=== PATIENT | male | born 1990 | race Caucasian/White ===

== ENCOUNTER 2017-02-02 22:37 | Emergency (ER) | payer OTHER ==
--- NOTE | 2017-02-02 22:42 | PDOC ---
Rapid Medical Evaluation Chief Complaint: Rash Time Seen by Provider: 02/02/17 22:41 Medical Evaluation: 02/02/17 22:41 I have performed a brief in-person evaluation of this patient. The patient presents with a chief complaint of: Skin Sores (Staph Infection) Pertinent physical exam findings: Multiple scattered sores to upper and lower extremities. I have ordered the following:n/a The patient will proceed to the ED for further evaluation.
[2017-02-02 22:43] VITALS: BP 125/89; PULSE 59; TEMP 97.5; BMI 26.6
[2017-02-02] MEDS ORDERED: SULFAMETHOXAZOLE/TRIMETHOPRIM 800MG/160MG D.S. TABLET PO ONE (23:38)
[2017-02-02] MEDS ORDERED: CEPHALEXIN MONOHYDRATE 500 MG CAPSULE (UD) PO ONE (23:38)
--- NOTE | 2017-02-02 23:44 | PDOC ---
History of Present Illness - General Chief Complaint: Rash Stated Complaint: INFECTION Time Seen by Provider: 02/02/17 22:41 History Source: Patient Exam Limitations: No Limitations - History of Present Illness Initial Comments: 02/02/17 23:40 26yo Male patient with no significant past medical history presents to ED c/o multiple skin sores. 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 He discuss this with another wrestler , who instructed him to get tested for Staph infection. Patient googled staph infection and believes the sores he has are quite similar in nature. He denies fever, cough, sore throat, recent traveling, or any other complaints at this time. Timing/Duration: reports: getting worse. denies: just prior to arrival, other, constant, changing over time, gone now, intermittent, week, yesterday, this afternoon, this evening, this morning Severity: Yes: moderate. No: mild, severe Location: reports: extremities, feet, hands. denies: none, face, genitalia, generalized, other, scalp, torso Respiratory Risk Factors: reports: other (See HPI). denies: no cause identified , exposure to illness, exposure to allergen, foods, insect bite, insect sting, medications, pollen, soaps Modifying Factors: improves with: scratching. worse with: antihistamine, calamine lotion, prednisone, topical steriods, other Associated Symptoms: reports: change in skin texture, other (Skin Sores.) Past History - Travel Traveled outside of the country in the last 30 days: No Close contact w/someone who was outside of country & ill: No - Past Medical History Allergies/Adverse Reactions: Allergies Allergy/AdvReac Type Severity Reaction Status Date / Time No Known Allergies Allergy Verified 02/02/17 22:43 Home Medications: Ambulatory Orders Cephalexin [Keflex] 500 mg PO BID #20 capsule 02/03/17 Mupirocin Ointment [Bactroban 2% Ointment -] 1 applic TP BID #1 tube 02/03/17 Sulfamethoxazole/Trimethoprim [Bactrim Ds -] 1 tab PO BID #14 tablet 02/03/17 COPD: No Other medical history: denies - Suicide/Smoking/Psychosocial Hx Smoking History: Never smoked Review of Systems - Review of Systems Able to Perform ROS?: Yes Is the patient limited Nepali proficient: No Constitutional: No: Chills, Fever HEENTM: No: Nose Congestion, Throat Pain, Throat Swelling Respiratory: No: Cough, Shortness of Breath, Wheezing Cardiac (ROS): No: Chest Pain Integumentary: Yes: Lesions All Other Systems: Reviewed and Negative *Physical Exam - Vital Signs Last Vital Signs Temp Pulse Resp BP Pulse Ox 97.5 F L 59 L 18 125/89 99 02/02/17 22:40 02/02/17 22:40 02/02/17 22:40 02/02/17 22:40 02/02/17 22:40 - Physical Exam General Appearance: Yes: Nourished, Appropriately Dressed. No: Apparent Distress, Mild Distress, Moderate Distress, Severe Distress Neck: positive: Trachea midline, Normal Thyroid, Supple. negative: Lymphadenopathy (R), Lymphadenopathy (L) Respiratory/Chest: positive: Lungs Clear, Normal Breath Sounds. negative: Chest Tender, Respiratory Distress, Accessory Muscle Use, Labored Respiration, Rapid RR, Decreased Breath Sounds, Rhonchi, Stridor, Wheezing Cardiovascular: positive: Regular Rhythm, Regular Rate Musculoskeletal: positive: Normal Inspection. negative: CVA Tenderness, Decreased Range of Motion, Vertebral Tenderness Extremity: positive: Normal Capillary Refill, Normal Inspection, Normal Range of Motion. negative: Pedal Edema, Swelling, Calf Tenderness, Erythema, Inflammation Integumentary: positive: Normal Color, Dry, Warm, Erythema, Other (Multiple sores to LLE, Right foot, and Left hand.). negative: Swelling Neurologic: positive: registered nurse obstetrics II-XII NML intact, Fully Oriented, Alert, Normal Mood/ Affect, Normal Response, Motor Strength 07/17 ED Treatment Course - LABORATORY CBC & Chemistry Diagram: 02/03/17 00:27 02/03/17 00:26 *DC/Admit/Observation/Transfer Diagnosis at time of Disposition: Skin sore, MRSA (methicillin resistant Staphylococcus aureus) - Discharge Dispostion Disposition: HOME Condition at time of disposition: Stable Admit: No - Prescriptions Prescriptions: Cephalexin [Keflex] 500 mg PO BID #20 capsule Mupirocin Ointment [Bactroban 2% Ointment -] 1 applic TP BID #1 tube Sulfamethoxazole/Trimethoprim [Bactrim Ds -] 1 tab PO BID #14 tablet - Referrals - Patient Instructions Printed Discharge Instructions: DI for Methicillin-Resistant Staph Infection ( MRSA) Additional Instructions: Follow up with your primary care provider this week. Call to schedule appointment. Take medications as prescribed. Apply ointment twice a day, be sure to shower first, do not apply lotion or any other topical preparations. Apply ointment only to affected areas. Do not share towels or wash cloths. Be sure to wash clothes in hot water. Return if any concerns or worsening of symptoms for further evaluation. Print Language: ARABIC - Post Discharge Activity Forms/Work/School Notes: Back to Work
[2017-02-03 00:38] LABS: BASOPHIL 0.6 % (0-2.0); MCH 30.8 pg (25.7-33.7); MEAN CELL VOLUME 90.6 fl (80-96); NEUTROPHILS 49.4 % (42.8-82.8); PLATELET COUNT 207 K/MM3 (134-434); RDW 12.6 % (11.9-15.9); WHITE BLOOD COUNT 8.2 K/mm3 (4.0-10.0)
[2017-02-03 01:01] LABS: ALBUMIN 4.4 g/dl (3.4-5.0); ALK PHOS 88 U/L (45-117); ANION GAP 8 (8-16); BILIRUBIN,TOTAL 0.5 mg/dL (0.2-1.0); CALCIUM 9.6 mg/dL (8.5-10.1); CO2 30 mmol/L (21-32); CREATININE 1.4 mg/dL (0.7-1.3); GLUCOSE,RANDOM 97 mg/dL (74-106); SGOT/AST 40 U/L (15-37); SGPT/ALT 41 U/L (12-78); TOT PROT 7.5 g/dl (6.4-8.2)
[2017-02-03] MEDS ORDERED: SULFAMETHOXAZOLE/TRIMETHOPRIM 800MG/160MG D.S. TABLET ONE (01:09)
[2017-02-03] MEDS ORDERED: CEPHALEXIN MONOHYDRATE 250 MG CAPSULE (FP) ONE (01:09)
== END 2017-02-03 01:40 | disposition home or self-care (01) ==
LOC: JER 22:37
DX: L98.8 Other specified disorders of the skin and subcutaneous tissue (principal); B95.62 Methicillin resistant Staphylococcus aureus infection as the cause of diseases classified elsewhere
CPT/HCPCS: 36415; 80053; 85025; 87040; 87070; 87205; 99281-25

== ENCOUNTER 2017-08-15 10:20 | Emergency (ER) | payer OTHER ==
[2017-08-15 10:27] VITALS: BP 133/77; PULSE 67; TEMP 97.8; BMI 25.8
--- NOTE | 2017-08-15 11:07 | PDOC ---
History of Present Illness - General Chief Complaint: Injury Stated Complaint: LT ANKLE PAIN Time Seen by Provider: 08/15/17 10:42 History Source: Patient Exam Limitations: No Limitations - History of Present Illness Initial Comments: 08/15/17 11:02 twisted ankle yesterday playing softball, was running and slid. Past History - Past Medical History Allergies/Adverse Reactions: Allergies Allergy/AdvReac Type Severity Reaction Status Date / Time No Known Allergies Allergy Verified 08/15/17 10:27 Home Medications: Ambulatory Orders NK [No Known Home Medication] 08/15/17 COPD: No - Suicide/Smoking/Psychosocial Hx Smoking History: Never smoked Review of Systems - Review of Systems Able to Perform ROS?: Yes Is the patient limited French proficient: No Integumentary: Yes: Symptoms Reported *Physical Exam - Vital Signs Last Vital Signs Temp Pulse Resp BP Pulse Ox 97.8 F 67 18 133/77 99 08/15/17 10:24 08/15/17 10:24 08/15/17 10:24 08/15/17 10:24 08/15/17 10:24 - Physical Exam General Appearance: Yes: Nourished, Appropriately Dressed HEENT: positive: EOMI, NILSA Extremity: positive: Normal Capillary Refill, Normal Inspection, Normal Range of Motion, Tender (lateral soft tissue posterior to the malleoulus , FROM nv intact ). negative: Pedal Edema, Swelling, Erythema, Inflammation Integumentary: positive: Normal Color, Dry, Warm Neurologic: positive: Fully Oriented, Alert, Normal Mood/Affect, Normal Response , Motor Strength 5/5 Procedures - Splinting Pre-Proc Neuro Vasc Exam: normal Post-Proc Neuro Vasc Exam: normal Gary Bandage: yes, 3" ED Treatment Course - RADIOLOGY Radiology Studies Ordered: Category Date Time Status ANKLE & FOOT-LEFT* [RAD] Stat Radiology 08/15/17 10:42 Taken Medical Decision Making - Medical Decision Making 08/15/17 11:02 ankle injury yesterday no obvious swelling or deformity will get xray to r/o fracture *DC/Admit/Observation/Transfer Diagnosis at time of Disposition: Ankle sprain Qualifiers: Encounter type: initial encounter Involved ligament of ankle: unspecified ligament Laterality: left Qualified Code(s): S93.402A - Sprain of unspecified ligament of left ankle, initial encounter - Discharge Dispostion Disposition: HOME Condition at time of disposition: Good - Referrals Referrals: Josué Booth MD [Primary Care Provider] - - Patient Instructions Additional Instructions: elevate and apply ice every 2hrs for 20 minutes take motrin 600mg every 8hrs for pain follow with an orthopedist for follow up - Post Discharge Activity
== END 2017-08-15 11:10 | disposition home or self-care (01) ==
LOC: JERFT 10:20
DX: S93.402A Sprain of unspecified ligament of left ankle, initial encounter (principal); X50.1XXA Overexertion from prolonged static or awkward postures, initial encounter; Y93.64 Activity, baseball; Y92.320 Baseball field as the place of occurrence of the external cause; Y99.8 Other external cause status
CPT/HCPCS: 73610-TC-LT-FY; 73630-TC-LT; 99281-25